=== PATIENT | female | born 1970 | race Caucasian/White ===

== ENCOUNTER 2019-05-19 09:29 | Emergency (ER) | payer MEDICAID ==
[~2019-05-19] VITALS: Ht 154.9 cm; Wt 67.1 kg
[2019-05-19 09:43] VITALS: BP 114/77; Ht 154.9 cm; Wt 67.1 kg
== END 2019-05-19 10:29 | disposition home or self-care (01) ==
LOC: ED 09:29
DX: B34.9 Viral infection, unspecified (principal); I10 Essential (primary) hypertension; E11.9 Type 2 diabetes mellitus without complications; Z98.890 Other specified postprocedural states

== ENCOUNTER 2019-07-22 19:37 | Emergency (ER) | payer MEDICAID ==
[~2019-07-22] VITALS: Ht 152.4 cm; Wt 67.1 kg
[2019-07-22 19:46] VITALS: Ht 152.4 cm; Wt 67.1 kg
[2019-07-22 20:27] LABS: BASOPHIL % 0.5 % (0-2); PLATELET COUNT 265 x10^3mcL (130-400); RED CELL DISTRIBUTION WIDTH 14.4 % (11.5-14.5)
[2019-07-22 20:29] LABS: CALCIUM 8.4 mg/dL (8.5-10.1); CARBON DIOXIDE 26.7 mmol/L (21-32); CHLORIDE SERUM 107 mmol/L (98-107); CREATININE SERUM 0.7 mg/dL (0.6-1.0); GFR1 > 60 mL/min; GLUCOSE SERUM 101 mg/dL (74-106); POTASSIUM SERUM 3.5 mmol/L (3.5-5.1); SODIUM SERUM 141 mmol/L (136-145)
[2019-07-22 20:34] LABS: ALKALINE PHOSPHATASE 144 U/L (46-116); ALT/SGPT 35 U/L (14-59); AST/SGOT 33 U/L (15-37); BILIRUBIN TOTAL 0.19 mg/dL (0.20-1.00); LIPASE 71 IU/L (73-393)
[2019-07-22 20:35] LABS: ALBUMIN 3.3 g/dL (3.4-5.0)
[2019-07-22 23:37] VITALS: BP 123/76
== END 2019-07-22 23:37 | disposition home or self-care (01) ==
LOC: ED 19:37
DX: K59.00 Constipation, unspecified (principal); I10 Essential (primary) hypertension; E11.9 Type 2 diabetes mellitus without complications; Z98.890 Other specified postprocedural states
CPT/HCPCS: 36415

== ENCOUNTER 2019-12-13 07:58 | Emergency (ER) | payer MEDICAID ==
[~2019-12-13] VITALS: Ht 157.5 cm; Wt 63.5 kg
[2019-12-13 08:19] VITALS: BP 116/74; Ht 157.5 cm; Wt 63.5 kg
== END 2019-12-13 10:05 | disposition home or self-care (01) ==
LOC: ED 07:58
DX: J06.9 Acute upper respiratory infection, unspecified (principal); I10 Essential (primary) hypertension; E11.9 Type 2 diabetes mellitus without complications

== ENCOUNTER 2019-12-17 15:33 | Emergency (ER) | payer MEDICAID ==
[~2019-12-17] VITALS: Ht 152.4 cm; Wt 68.0 kg
[2019-12-17 15:51] VITALS: Ht 152.4 cm; Wt 68.0 kg
[2019-12-17 19:35] VITALS: BP 107/88
== END 2019-12-17 19:36 | disposition home or self-care (01) ==
LOC: ED 15:33
DX: K08.89 Other specified disorders of teeth and supporting structures (principal); R22.0 Localized swelling, mass and lump, head; I10 Essential (primary) hypertension; E11.9 Type 2 diabetes mellitus without complications